=== PATIENT | male | born 1965 | race American Indian/Alaskan Native ===

== ENCOUNTER 2021-11-28 07:29 | Emergency (ER) | payer BC, OTHER ==
[2021-11-28 08:06] VITALS: BP 173/108
[2021-11-28] MEDS ORDERED: methylPREDNISolone ACETATE 80 MG/1 ML INJ IM ONE (08:19)
--- NOTE | 2021-11-28 08:19 | Emergency Department Report ---
ED Extremity Problem HPI - General Chief complaint: Extremity Problem,Nontraumatic Stated complaint: LT ANKLE PAIN (GOUT) Time Seen by Provider: 11/28/21 08:10 Source: patient Mode of arrival: Ambulatory Limitations: No Limitations - History of Present Illness Initial comments: 56 YO AA COMES TO ER WITH LEFT HEEL PAIN. HE HAS A/C GOUT. THIS IS HIS USUAL GOUT PAIN. NO FALL/TRAUMA. NO SWELLING. NO CP OR SOB. PT BP NOTED TO BE INCREASED- HE STATES BECAUSE HE IS AT ER AND IN PAIN AMBULATORY AND IN NAD Complaint: extremity pain -: Gradual, days(s) Location: left History of Same: Yes Radiation: none Severity scale (0 -10): 7 Quality: aching Consistency: constant Improves with: nothing Worsens with: nothing Associated Symptoms: denies other symptoms - Related Data Previous Rx's Medication Instructions Recorded Last Taken Type Ibuprofen [Motrin] 600 mg PO Q8H PRN #9 tablet 08/01/16 Unknown Rx Colchicine 0.6 mg PO DAILY #11 11/28/21 Unknown Rx predniSONE [Deltasone] 20 mg PO DAILY #5 tablet 11/28/21 Unknown Rx Allergies Allergy/AdvReac Type Severity Reaction Status Date / Time No Known Allergies Allergy Unverified 05/01/15 02:57 ED Review of Systems ROS: Stated complaint: LT ANKLE PAIN (GOUT) Other details as noted in HPI Comment: All other systems reviewed and negative ED Past Medical Hx - Past Medical History Previous Medical History?: Yes Hx Asthma: Yes Additional medical history: gout - Surgical History Past Surgical History?: No - Family History Family history: no significant - Social History Smoking Status: Never Smoker Substance Use Type: None - Medications Home Medications: Home Medications Medication Instructions Recorded Confirmed Last Taken Type Ibuprofen [Motrin] 600 mg PO Q8H PRN #9 tablet 08/01/16 Unknown Rx Colchicine 0.6 mg PO DAILY #11 11/28/21 Unknown Rx predniSONE [Deltasone] 20 mg PO DAILY #5 tablet 11/28/21 Unknown Rx ED Physical Exam - General Limitations: No Limitations General appearance: alert, in no apparent distress - Head Head exam: Present: atraumatic, normocephalic - Eye Eye exam: Present: normal appearance - ENT ENT exam: Present: mucous membranes moist - Neck Neck exam: Present: normal inspection - Respiratory Respiratory exam: Present: normal lung sounds bilaterally. Absent: respiratory distress - Cardiovascular Cardiovascular Exam: Present: regular rate, normal rhythm. Absent: systolic murmur, diastolic murmur, rubs, gallop - GI/Abdominal GI/Abdominal exam: Present: soft, normal bowel sounds - Rectal Rectal exam: Present: deferred - Extremities Exam Extremities exam: Present: normal inspection - Back Exam Back exam: Present: normal inspection - Neurological Exam Neurological exam: Present: alert, oriented X3 - Psychiatric Psychiatric exam: Present: normal affect, normal mood - Skin Skin exam: Present: warm, dry, intact, normal color. Absent: rash ED Course Vital Signs 11/28/21 08:04 Temperature 98.3 F Pulse Rate 61 Respiratory 17 Rate Blood Pressure 173/108 [Right] O2 Sat by Pulse 98 Oximetry ED Medical Decision Making - Medical Decision Making Vital Signs 11/28/21 08:04 Temperature 98.3 F Pulse Rate 61 Respiratory 17 Rate Blood Pressure 173/108 [Right] O2 Sat by Pulse 98 Oximetry PT NOTED TO HAVE INC BP NO HISTORY HE STATES WHEN HE GOES TO MD OR IS IN PAIN IT IS HIGH NO CP OR SOB HE HAS ISOLATED L HEEL PAIN SAME HIS USUAL GOUT OUT OF GOUT MEDS EDUCATED IN ER TO MONITOR BP AND FOLLOW UP WITH PCP IF PERSISTS REFERRAL GIVEN MEDIATED WITH IM STEROID INJECTION AND ULTRAM IN ER DC HOME WITH DC PLAN OF CARE INCLUDING MED, DIET, ACTIVITY AND FOLLOW UP. HE VERBALIZES UNDERSTANDING OF PLAN OF CARE. - Differential Diagnosis A/C GOUT Critical care attestation.: If time is entered above; I have spent that time in minutes in the direct care of this critically ill patient, excluding procedure time. ED Disposition Clinical Impression: Elevated blood pressure reading Gout Qualifiers: Gout site: foot Gout etiology: unspecified cause Chronicity: unspecified Laterality: left Qualified Code(s): M10.9 - Gout, unspecified Disposition: HOME / SELF CARE / HOMELESS Is pt being admited?: No Does the pt Need Aspirin: No Condition: Stable Instructions: Low-Purine Eating Plan Additional Instructions: CONTINUE HOME OVER THE COUNTER MOTRIN DIET ATTACHED HERE MEDS ORDERED FOLLOW UP WITH PCP FOR RECHECK REFERRAL BELOW MONITOR YOUR BLOOD PRESSURE- IT WAS HIGH TODAY AND COULD BE DUE TO PAIN FOLLOW UP WITH PCP Prescriptions: Colchicine 0.6 mg PO DAILY #11 predniSONE [Deltasone] 20 mg PO DAILY #5 tablet Referrals: AMNA SINGLETARY MD [Staff Physician] - 3-5 Days Time of Disposition: 08:24
[2021-11-28] MEDS ORDERED: traMADol 50 MG TAB PO ONE (08:28)
== END 2021-11-28 09:24 | disposition home or self-care (01) ==
LOC: ED 07:29
DX: M10.9 Gout, unspecified (principal); R03.0 Elevated blood-pressure reading, without diagnosis of hypertension; J45.909 Unspecified asthma, uncomplicated
CPT/HCPCS: 96372; 99282; J1040